=== PATIENT | male | born 1970 | race African-American/Black ===

== ENCOUNTER 2022-10-03 15:54 | Inpatient (IN) | payer MEDICAID ==
[~2022-10-03] VITALS: Ht 185.4 cm; Wt 85.0 kg
[2022-10-03] MEDS ORDERED: MORPHINE SULFATE 4 MG/ML CPJ (NOT FOR IM USE) IV STA (17:08)
[2022-10-03 17:37] LABS: HEMATOCRIT. 39.9 % (42.0-52.0); HEMOGLOBIN. 13.1 g/dL (14.0-18.0); MEAN CORPUSCULAR HEMOGLOBIN 22.7 pg (28.0-32.0); MEAN CORPUSCULAR VOLUME 69.2 fL (80.0-94.0); MEAN PLATELET VOLUME 9.1 fl (7.4-10.4); PLATELET 369 x1000/uL (130-400); RED BLOOD CELL COUNT 5.77 mill/uL (4.7-6.1); RED CELL DISTRIBUTION WIDTH 18.6 % (11.6-14.6)
[2022-10-03 17:49] LABS: INR 1.3; PROTHROMBIN TIME 13.8 sec (9.6-11.0)
[2022-10-03 18:30] LABS: PLATELET ESTIMATE NORMAL
[2022-10-03 18:31] LABS: CHLORIDE 101 mEq/L (98-107)
[2022-10-03] MEDS ORDERED: KETOROLAC 30MG/ML VIAL IV ONE (20:30)
[2022-10-03 21:05] LABS: HEPATITIS B SURFACE ANTIGEN REACTIVE PEND CONFIR
[2022-10-03] MEDS ORDERED: IPRATROPIUM/ALBUTEROL 0.5-3(2.5)MG/3ML NEB NEB PRN (23:15)
[2022-10-03] MEDS ORDERED: ONDANSETRON HCL 4MG/2ML INJ IV PRN (23:15)
[2022-10-03] MEDS ORDERED: ZOLPIDEM TARTRATE 5MG TABLET PO PRN (23:15)
[2022-10-03] MEDS ORDERED: DOCUSATE SODIUM 100MG CAPSULE PO PRN (23:15)
[2022-10-03] MEDS ORDERED: CLONIDINE 0.1MG TABLET PO PRN (23:15)
[2022-10-03] MEDS ORDERED: GUAIFENESIN 200MG/10ML SUGAR FREE UDC PO PRN (23:15)
[2022-10-03] MEDS ORDERED: KETOROLAC 15MG/ML VIAL IV PRN (23:15)
[2022-10-03] MEDS ORDERED: MAGNESIUM/ALUMINUM HYDROXIDE/SIMETHICONE 30ML UDC PO PRN (23:15)
[2022-10-03] MEDS ORDERED: NITROGLYCERIN 0.4MG TABLET SL SL PRN (23:15)
[2022-10-03] MEDS ORDERED: NA PHOS,M-B/NA PHOS,DI-BA ENEMA 118ML PR PRN (23:15)
[2022-10-03] MEDS ORDERED: DEXT 5%/LACTATED RINGERS 1,000 ML IV SCH (23:15)
[2022-10-03 23:45] VITALS: BP 122/82
[2022-10-04] MEDS ORDERED: FAMOTIDINE 20MG TABLET PO SCH (09:00)
[2022-10-04] MEDS ORDERED: ENOXAPARIN 40MG/0.4ML SYR SUBCUT SCH (09:00)
== END 2022-10-04 00:30 | disposition home or self-care (01) ==
LOC: ER 15:54 → MICUSO 22:27 → CANRESERV 23:59 → ENRESERV 23:59 → ER 10-04 00:10
PROVIDERS: ADMIT Internal Medicine; ATTEND Internal Medicine
DX: B16.9 Acute hepatitis B without delta-agent and without hepatic coma (principal); K72.00 Acute and subacute hepatic failure without coma; E44.1 Mild protein-calorie malnutrition; Z68.24 Body mass index [BMI] 24.0-24.9, adult; D50.9 Iron deficiency anemia, unspecified
CPT/HCPCS: 36415; 74176; 80053; 85025; 86705; 86709; 86803; 87340; 99285; J1885; J7121